=== PATIENT | female | born 1960 | race Caucasian/White ===

== ENCOUNTER 2019-08-20 08:23 | Day surgery (SDC) | payer BC ==
[2019-08-20] MEDS ORDERED: PROPOFOL 10 MG/ML VIAL IV ONE (08:24)
[2019-08-20] MEDS ORDERED: LIDOCAINE 2% MDV (20MG/ML) 20ML VIAL IV ONE (08:24)
--- NOTE | 2019-08-21 10:00 | Operative Note ---
OPERATION: COLONOSCOPY with random biopsy and photo. PREOPERATIVE DIAGNOSES: 1. Change in bowel habits. 2. Rule out microscopic colitis. 3. Colon cancer screening. 4. Lower abdominal pain. POSTOPERATIVE DIAGNOSES: 1. [id number] sigmoid diverticulosis. 2. Otherwise normal exam, rule out microscopic colitis. PROCEDURE: After informed consent was obtained from the patient, she was placed in the left lateral decubitus position in the endoscopy suite, sedated and monitored by the department of anesthesia. Digital rectal exam was unremarkable. A well-lubricated MXA139 colonoscope was inserted into the rectum and advanced to the cecum. Preparation quality was good to excellent. The cecum, cecal bulb, distal portion of the terminal ileum, ascending colon, transverse colon, and descending colon were unremarkable. No polyps, mass lesions, or inflammation was seen. The sigmoid colon demonstrated [id number] diverticular changes. The rectum was unremarkable in forward and J-turn views. It should be noted that random biopsies were obtained throughout the length of the colon. The endoscope was straightened, the rectal ampulla deflated, and the endoscope was removed. RECOMMENDATIONS: The patient should use a fiber supplement such as Citrucel or Benefiber and follow a high-fiber diet. Further recommendations based on tissue histology. In addition, the patient should undergo repeat screening exam in 10 years. As always, thank you for allowing me to participate in the healthcare of your patients. SANDRO
== END 2019-08-20 10:03 | disposition home or self-care (01) ==
LOC: HOP 08:23
PROVIDERS: ATTEND Internal Medicine Gastroenterology
DX: R19.4 Change in bowel habit (principal); R10.9 Unspecified abdominal pain; J44.9 Chronic obstructive pulmonary disease, unspecified; F17.210 Nicotine dependence, cigarettes, uncomplicated; K57.30 Diverticulosis of large intestine without perforation or abscess without bleeding